=== PATIENT | female | born 1980 | race Caucasian/White ===

== ENCOUNTER 2020-11-14 09:51 | Outpatient (CLI) | payer OTHER, SELFPAY ==
--- NOTE | ~2020-11-14 | MM_ITS ---
EXAMINATION: MM screening landy BI w judy HISTORY: Screening TECHNIQUE: Craniocaudal and mediolateral oblique 3-D tomosynthesis images were obtained and synthetic 2-D images were generated. CAD analysis was submitted and interpreted. COMPARISON: No prior mammogram is available for comparison at this institution. BREAST PARENCHYMAL COMPOSITION: The breasts are heterogeneously dense, which may obscure small masses . FINDINGS: There is no evidence of suspicious mass, calcification, or architectural distortion to sugg est malignancy in either breast. There has been no suspicious interval change. IMPRESSION: 1. No mammographic evidence of malignancy. 2. Recommend routine screening mammography in one year. BI-RADS Category 1: Negative Reviewed, dictated and finalized at location A.
== END 2020-11-14 09:52 | disposition home or self-care (01) ==
PROVIDERS: PCP Family Medicine; Visit Provider Student in an Organized Health Care Education/Training Program
DX: Z12.31 Encounter for screening mammogram for malignant neoplasm of breast (principal)
CPT/HCPCS: 77063; 77067

== ENCOUNTER 2021-02-14 15:32 | Outpatient (CLI) | payer OTHER, SELFPAY ==
--- NOTE | ~2021-02-14 | MR_ITS ---
EXAMINATION: MR lumbar spine wo con EXAM DATE: 02/14/2021 16:12 INDICATION: Lumbar radiculopathy. TECHNIQUE: Multi-sequential, multiplanar MR images of the lumbar spine were obtained without contrast . Sagittal T1, T2, T2 fat saturation images. Axial T2 weighted images. There is no prior study for comparison. FINDINGS: Severe right renal atrophy, probably congenital with some compensatory enlargement of the l eft kidney. There is mild to moderate upper lumbar levoscoliosis. There is 4 mm retrolisthesis L5 on S1 with moderate loss of this disc height. Mild disc disease at the other lumbar levels. The conus me dullaris terminates at the L1 level and has normal signal intensity and morphology. There are no benita picious marrow signal abnormalities. Paraspinal soft tissue is unremarkable. Level by level evaluation: T12-L1: Disc does not extend beyond the endplate margin. Facet arthropathy: None. Neural foraminal stenosis: No stenosis. Central canal stenosis: No stenosis. L1-L2: There is a mild diffuse disc bulge. Facet arthropathy: None. Neural foraminal stenosis: No stenosis. Central canal stenosis: No stenosis. L2-L3: There is a mild diffuse disc bulge. Facet arthropathy: Mild. Neural foraminal stenosis: Mild left. Central canal stenosis: No stenosis. L3-L4: There is a mild diffuse disc bulge. Facet arthropathy: Mild to moderate. Neural foraminal stenosis: Mild left. Central canal stenosis: Mild. L4-L5: There is a mild to moderate diffuse disc bulge. Facet arthropathy: Mild to moderate. Neural foraminal stenosis: Mild to moderate left, mild right. Central canal stenosis: Mild. L5-S1: There is a mild to moderate diffuse disc bulge asymmetric to the left Facet arthropathy: Mild to moderate. Neural foraminal stenosis: Moderate left, mild right. Central canal stenosis: Mild. IMPRESSION: 1. Mild to moderate upper lumbar levoscoliosis. 2. Overall mild to moderate spondylosis. 3. Congenitally small right kidney. Reviewed, dictated and finalized at location A. 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
== END 2021-02-14 15:33 | disposition home or self-care (01) ==
LOC: ANHIMG 15:40
PROVIDERS: PCP Family Medicine; Visit Provider Nurse Practitioner Family
DX: M47.27 Other spondylosis with radiculopathy, lumbosacral region (principal); M48.07 Spinal stenosis, lumbosacral region; N28.1 Cyst of kidney, acquired
CPT/HCPCS: 72148

== ENCOUNTER 2021-02-22 01:25 | Day surgery (SDC) | payer OTHER, SELFPAY ==
[2021-02-06 14:17] VITALS: BMI 35.9
[2021-02-22 08:41] VITALS: BP 129/88; PULSE 55; RESP 18; TEMP 36.1; O2SAT 95; BMI 35.4
[2021-02-22] MEDS: LACTATED RINGERS 1,000 ML 150 ML IV CONT (08:57)
--- NOTE | 2021-02-22 09:04 | WPDANESEPPF ---
Anes - Initial Pre Proc Eval Procedure: Operation Date: 02/22/21 09:30 Proposed Procedures p Esophagogastroduodenoscopy - Adrian Zacarias MD Date/Time: 02/22/21 09:04 Surgeon: Adrain Zacarias MD Pre Op Diagnosis: GERD Patient Data Age: 40 Gender: F Height: 1.63 m Weight: 93.5 kg Last Vital Signs Temp 97.0 F L 02/22/21 08:41 Pulse 55 L 02/22/21 08:41 Resp 18 02/22/21 08:41 BP 129/88 02/22/21 08:41 Pulse Ox 95 02/22/21 08:41 Allergies Allergy/AdvReac Type Severity Reaction Status Date / Time morphine Allergy Unknown Dermatitis Verified 02/22/21 08:40 cefdinir AdvReac Intermediate vaginitis Uncoded 02/06/21 14:14 doxycycline AdvReac Intermediate GI upset Uncoded 02/06/21 14:14 Home Medications Medication Instructions Recorded Confirmed Type fexofenadine 180 mg tablet 180 mg PO DAILY PRN 05/11/19 02/22/21 History lorazepam 0.5 mg tablet 0.5 mg PO BID PRN #60 tablet 05/11/19 02/22/21 Rx albuterol sulfate 90 mcg/actuation 2 puff INHALATION Q4H PRN #18 g 04/02/20 02/22/21 Rx aerosol inhaler metoprolol succinate 100 mg 100 mg PO DAILY #30 tablet 06/04/20 02/22/21 Rx tablet,extended release 24 hr omeprazole 40 mg capsule,delayed 40 mg PO DAILY #90 cap 08/08/20 02/22/21 Rx release escitalopram oxalate 20 mg tablet 20 mg PO DAILY #90 tablet 09/04/20 02/22/21 Rx montelukast 10 mg tablet 10 mg PO DAILY #90 tablet 09/04/20 02/22/21 Rx paroxetine HCl 40 mg PO DAILY 02/06/21 02/22/21 History Patient hx anesthesia problems: none Family hx anesthesia problems: none Results Review: All pre-operative results and documents have been reviewed as part of the pre-operative evaluation. [facility] Past Medical History Medical History (Updated 01/16/21 @ 15:53 by Darcy Hughes NP) Acute non-recurrent maxillary sinusitis BMI 35.0-35.9,adult Chronic thoracic back pain COVID-19 (03/29/20) Diarrhea Exposure to COVID-19 virus Fatigue Low back pain Low back pain with bilateral sciatica Primary hypertension Shortness of breath Vaginal delivery Surgical History Surgical History History of hysterectomy History of tubal ligation Family History Family History Mother Family history of malignant neoplasm of uterus Grandparent Family history of malignant neoplasm of stomach Social History Social History Smoking packs per day: 1 Smoking cigarettes per day: 20.0 Years smoked: 20 Smoking pack-years: 20.00 Smoking status: Former smoker Tobacco type: cigarettes Second hand tobacco smoke exposure: Yes Smoking end date: 04/06/13 Alcohol intake: never Living arrangements: with family Spiritual care concerns: No Anes - Eval Final PreProcedure Day of Procedure 02/22/21 09:04 Patient weight: obese Heart: regular rate and rhythm Lungs: clear to auscultation Airway: Mallampati scale class II Neurological: alert and oriented Last oral intake: >/= 8 hours ASA classification: III Emergent: no Anesthetic plan: proceed Anesthesia type and monitoring: general GIVS and standard monitoring Results Review: All pre-operative results and documents have been reviewed as part of the pre-operative evaluation. Informed Consent: The patient's anesthetic plan and its attendant risks and benefits were discussed with the patient/family/POA. Questions were solicited and answers provided to the satisfaction of the patient/family/POA.
--- NOTE | 2021-02-22 09:19 | WPDGICN ---
Assessment and Plan Assessment and plan (1) GERD (gastroesophageal reflux disease): Qualifiers: Esophagitis presence: esophagitis presence not specified Qualified Code(s): K21.9 - Gastro-esophageal reflux disease without esophagitis Code(s): K21.9 - Gastro-esophageal reflux disease without esophagitis Status: Acute Assessment and Plan: Patient with chronic GE reflux disease. Has nocturnal regurgitation. Follow smelling belching is suspicious for delayed gastric emptying. Plan is for EGD. Anti-reflux measures to in continue. We may want to consider gastric emptying scan pending on EGD results. GI Consult Note Consult date/time: 02/22/21 09:19 HPI: Lydia Harper is a 40 year old female Presents for EGD. Patient complains of a long history of nocturnal regurgitation. Substernal heartburn, indigestion. She has been on Prilosec 40mg p.o. daily taken at bedtime for many years with no change in symptoms. She sometimes will take antacids and other medications to supplement this. She denies any dysphagia. Sometimes she will have belching and foul eructations. Patient denies any weight loss. Family history is noncontributory. Patient presents today for an EGD. Review of Systems Review of Systems: All systems reviewed & are unremarkable except as noted in HPI and below PMFSH Past Medical History Medical History (Updated 01/16/21 @ 15:53 by Darcy Hughes NP) Acute non-recurrent maxillary sinusitis BMI 35.0-35.9,adult Chronic thoracic back pain COVID-19 (03/29/20) Diarrhea Exposure to COVID-19 virus Fatigue Low back pain Low back pain with bilateral sciatica Primary hypertension Shortness of breath Vaginal delivery Surgical History Surgical History History of hysterectomy History of tubal ligation Family History Family History Mother Family history of malignant neoplasm of uterus Grandparent Family history of malignant neoplasm of stomach Social History Social History Smoking packs per day: 1 Smoking cigarettes per day: 20.0 Years smoked: 20 Smoking pack-years: 20.00 Smoking status: Former smoker Tobacco type: cigarettes Second hand tobacco smoke exposure: Yes Smoking end date: 04/06/13 Alcohol intake: never Living arrangements: with family Spiritual care concerns: No Meds Home Medications and Allergies Home Medications Medication Instructions Recorded Confirmed Type fexofenadine 180 mg tablet 180 mg PO DAILY PRN 05/11/19 02/22/21 History lorazepam 0.5 mg tablet 0.5 mg PO BID PRN #60 tablet 05/11/19 02/22/21 Rx albuterol sulfate 90 mcg/actuation 2 puff INHALATION Q4H PRN #18 g 04/02/20 02/22/21 Rx aerosol inhaler metoprolol succinate 100 mg 100 mg PO DAILY #30 tablet 06/04/20 02/22/21 Rx tablet,extended release 24 hr omeprazole 40 mg capsule,delayed 40 mg PO DAILY #90 cap 08/08/20 02/22/21 Rx release escitalopram oxalate 20 mg tablet 20 mg PO DAILY #90 tablet 09/04/20 02/22/21 Rx montelukast 10 mg tablet 10 mg PO DAILY #90 tablet 09/04/20 02/22/21 Rx paroxetine HCl 40 mg PO DAILY 02/06/21 02/22/21 History Allergies Allergy/AdvReac Type Severity Reaction Status Date / Time morphine Allergy Unknown Dermatitis Verified 02/22/21 08:40 cefdinir AdvReac Intermediate vaginitis Uncoded 02/06/21 14:14 doxycycline AdvReac Intermediate GI upset Uncoded 02/06/21 14:14 Vital Signs Vital Signs - 24 hr 02/22/21 08:41 Temperature 97.0 F L Pulse Rate 55 L Respiratory Rate 18 Blood Pressure 129/88 Pulse Oximetry 95 Exam Narrative: Physical exam reveals patient be alert. Vital signs stable. HEENT exam is unremarkable. Patient is anicteric. Lungs are clear to auscultation and percussion. Heart is without murmur or extra sounds. Abdominal exam bowel sound
[2021-02-22] MEDS: BENZOCAINE (*SP) 60 ML SPRAY CAN (HURRICAINE) 1 SPRAY MUCOUS MEM (09:32)
[2021-02-22 09:45] VITALS: BP 98/70; PULSE 68; RESP 17; O2SAT 99
[2021-02-22 09:55] VITALS: BP 106/71; PULSE 65; RESP 18; O2SAT 100
[2021-02-22 10:05] VITALS: BP 127/84; PULSE 62; RESP 20; O2SAT 100
== END 2021-02-22 10:21 | disposition home or self-care (01) ==
PROVIDERS: PCP Family Medicine; Visit Provider Internal Medicine Gastroenterology
PROC: 0DJ08ZZ Inspection of Upper Intestinal Tract, Via Natural or Artificial Opening Endoscopic (ICD-10-PCS; CPT 43235; principal; 2021-02-22 09:30)
DX: K21.9 Gastro-esophageal reflux disease without esophagitis (principal); R14.2 Eructation; Z86.16 Personal history of COVID-19; I10 Essential (primary) hypertension; Z87.891 Personal history of nicotine dependence; Z79.51 Long term (current) use of inhaled steroids; E66.9 Obesity, unspecified; Z68.35 Body mass index [BMI] 35.0-35.9, adult
CPT/HCPCS: 43239; 87081; J2704; J7120

== ENCOUNTER 2021-06-18 07:04 | Outpatient (CLI) | payer OTHER, SELFPAY ==
--- NOTE | ~2021-06-18 | NM_ITS ---
EXAM: NM gastric emptying study DATE: 06/18/2021 11:48 INDICATION: Belching. Nocturnal regurgitation. TECHNIQUE: A gastric emptying study was performed using the methodology of Gretta LARA, et al. J Nucl Med 2007; 48:568-572. The patient was given a meal consisting of 2 scrambled eggs labeled with 0.953 mCi Tc-99m sulfur colloid, 2 slices of toast, two packages of jam, and approximately 120 mL of water . Simultaneous anterior and posterior 1-min images of the abdomen were obtained with the patient supi ne at multiple time points over a total period of 4 hours. The geometric mean of anterior and posteri or views was determined, and the percentage retention was calculated for each time point. COMPARISON: None. FINDINGS: Gastric retention of the radiotracer-labeled meal was 37%, 7%, and 3% at the 1-hour, 2-adam r, and 4-hour time points, respectively. With this technique, apparent rapid gastric emptying is sugg ested by <30% gastric retention at 1 hour. Delayed gastric emptying is defined by gastric retention o f >90% at 1 hour, >60% retention at 2 hours, or >10% retention at 4 hours. IMPRESSION: 1. Normal gastric emptying. Reviewed, dictated and finalized at location A. IMPRESSION: 1. Normal gastric emptying.
== END 2021-06-18 07:05 | disposition home or self-care (01) ==
PROVIDERS: PCP Family Medicine; Visit Provider Internal Medicine Gastroenterology
DX: K21.9 Gastro-esophageal reflux disease without esophagitis (principal)
CPT/HCPCS: 78264; A9541

== ENCOUNTER 2022-10-15 15:11 | Outpatient (CLI) | payer OTHER, SELFPAY ==
--- NOTE | ~2022-10-15 | MM_ITS ---
EXAMINATION: MM screening landy BI w judy HISTORY: Screening mammogram TECHNIQUE: Craniocaudal and mediolateral oblique 3-D tomosynthesis images were obtained and synthetic 2-D images were generated. CAD analysis was submitted and interpreted. COMPARISON: 11/14/2020 bilateral screening mammogram BREAST PARENCHYMAL COMPOSITION: The breasts are heterogeneously dense, which may obscure small masses . FINDINGS: There is no evidence of suspicious mass, calcification, or architectural distortion to sugg est malignancy in either breast. There has been no suspicious interval change. IMPRESSION: 1. No mammographic evidence of malignancy. 2. Recommend routine screening mammography in one year. BI-RADS Category 1: Negative Reviewed, dictated and finalized at location A.
== END 2022-10-15 15:12 | disposition home or self-care (01) ==
LOC: ANHIMG 15:13
PROVIDERS: PCP Nurse Practitioner Family; Visit Provider Obstetrics & Gynecology
DX: Z12.31 Encounter for screening mammogram for malignant neoplasm of breast (principal)
CPT/HCPCS: 77063; 77067

== ENCOUNTER 2023-05-31 15:01 | Emergency (ER) | payer OTHER, SELFPAY ==
--- NOTE | ~2023-05-31 | CT_ITS ---
EXAMINATION: CT abdomen pelvis w con DATE: 05/31/2023 18:13 INDICATION: RLQ pain w/CVA TTP; c/f appy vs pyelo; hx atrophic TECHNIQUE: Computed tomography (CT) of the abdomen and pelvis was performed with 100 mL Omnipaque-350 intravenous contrast. Automated exposure control and iterative reconstruction technique were employe d. The dose-length product was 1039.33 mGy-cm. COMPARISON: None. FINDINGS: Lower thorax: 5 mm peripheral nodule in the lingula. Liver: Enlarged. Biliary/Gallbladder: Gallbladder is normal. No bile duct dilation. Pancreas: No mass or duct dilation. Spleen: Normal. Adrenals:No mass. Kidneys: Severe right renal atrophy. Multiple punctate nonobstructing right calculi. Simple right eve al cyst. Normal left kidney. GI tract: Mild distal esophageal and gastric wall edema. Colonic submucosal fat deposition. No small or large bowel dilation. Normal appendix. Mesentery/Peritoneum: No ascites, mass, or free air. Retroperitoneum: No mass. Atherosclerotic abdominal aortic and/or arterial calcifications. Pelvis: Absent uterus. Normal urinary bladder and ovaries. Soft Tissues: Soft tissues and body wall unremarkable. Bones: No acute osseous finding. IMPRESSION: 5 mm peripheral lingular pulmonary nodule, most likely representing a benign granuloma. No routine fo llow-up recommended unless the patient is at high risk, in which case consider an optional low-dose n oncontrast CT of the chest in 12 months. Mild esophagitis/gastritis. Hepatomegaly. Severe right renal atrophy. No CT evidence of obstructive uropathy or pyelonephritis. Normal appendix. Colonic submucosal fat as can be seen with chronic IBD, obesity, chemotherapy treatment, and celiac d isease. Reviewed, dictated and finalized at location K. 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 No routine follow-up recommended unless the patient is at high risk, i n which case consider an optional low-dose noncontrast CT of the chest in 12 mo nths. Mild esophagitis/gastritis. Hepatomegaly. Severe right renal atrophy. No CT evidence of obstructive uropathy or pyeloneph ritis. Normal appendix. Colonic submucosal fat as can be seen with chronic IBD, obesity, chemotherapy t reatment, and celiac disease.
[2023-05-31 15:11] VITALS: BP 152/108; PULSE 78; RESP 16; TEMP 36.5; O2SAT 99
--- NOTE | 2023-05-31 16:48 | ED.ABDPAIN ---
HPI - Abdominal Pain General Chief Complaint: Abdominal Pain Stated Complaint: abd pain Time Seen by Provider: 05/31/23 16:37 Source: patient and family () Mode of arrival: ambulatory Limitations: no limitations History of Present Illness HPI narrative: 42-year-old postmenopausal female presents with abdominal pain. She notes that she has had chronic loose stools but denies any melena or hematochezia. Her pain is located at the umbilicus but is otherwise a generalized pain which she describes as a dull ache. It radiates to her low back. This has been occurring past 24 hours and is constant. She was that she has 1 functioning kidney and the other is atrophic. She knows that she has GI issues previously and follows with executive communications manager Dr. Zacarias. She had an acid test performed as well as an EGD but no prior colonoscopy. Last oral intake was approximally 9:00 a.m. but has otherwise been limited as she has had no appetite. She denies any nausea or vomiting. No pain with bowel movements. Denies any vaginal discharge or bleeding. Denies any hematuria, dysuria, urinary urgency, or frequency. She does have an occasional bladder leak that is chronic. Amenorrhea in the setting of hysterectomy. No prior cholecystectomy or appendectomy. Related Data Home Medications Medication Instructions Recorded Confirmed fexofenadine 180 mg tablet 180 mg PO DAILY PRN allergies 05/11/19 12/10/22 (Adrianne Allergy) Allergies Allergy/AdvReac Type Severity Reaction Status Date / Time morphine Allergy Unknown Dermatitis Verified 12/09/22 13:20 cefdinir AdvReac Intermediate vaginitis Uncoded 12/09/22 13:20 doxycycline AdvReac Intermediate GI upset Uncoded 12/09/22 13:20 [facility] Past Medical History Medical History (Updated 06/01/23 @ 00:00 by Sujata Anne) Acute non-recurrent maxillary sinusitis Acute sinusitis BMI 35.0-35.9,adult BMI 36.0-36.9,adult Bronchitis Chronic thoracic back pain COVID-19 (03/29/20) Diarrhea Exposure to COVID-19 virus Fatigue Grinding of teeth Hypertension Low back pain Low back pain with bilateral sciatica Mixed incontinence Overactive bladder Pain, joint, multiple sites Primary hypertension Shortness of breath Sinusitis Urinary incontinence Urinary symptom or sign Vaginal delivery Surgical History Surgical History History of esophagogastroduodenoscopy (EGD) History of hysterectomy 2005 History of tubal ligation Family History Family History Mother Family history of malignant neoplasm of uterus Grandparent Family history of malignant neoplasm of stomach Social History Social History (Updated 12/09/22 @ 13:23 by Alma Chen MA) Smoking packs per day: 1 Smoking cigarettes per day: 20.0 Years smoked: 20 Smoking pack-years: 20.00 Smoking status: Former smoker Tobacco type: cigarettes Second hand tobacco smoke exposure: Yes Smoking end date: 04/06/13 Alcohol intake: never Substance use: never Substance use type: does not use Lack of Transportation: No Lack of Food: Never True Current Housing: I Have Housing Concerned About Future Housing: No Difficulty Paying Gas/Electric Bills: No Difficulty Paying for Meds: No Currently Unemployed: No Education: Trade/Vocational Certificate Difficulty w/ Childcare or Family Care: No Living arrangements: with family Occupation/Education: occupation Gender identity (if verbalized by the patient): Female Sexual Orientation (if Verbalized by the Patient): Straight or Heterosexual Spiritual care concerns: No Exam Narrative: GENERAL: Well-appearing, well-nourished, and in no acute distress. HEAD: Normocephalic, atraumatic. EYES: Non injected, non icteric ENT: Nares clear, no rhinorrhea or epistaxis. NECK: Supple. CHEST: Speaking in complete sentences. No r
[2023-05-31 17:02] LABS: Appearance Urine Clear (Clear); Basophils Absolute Auto 0.1 K/mm3 (0.0-0.1); Basophils Percent Auto 0.9 % (0.2-1.2); Bilirubin Urine Negative (Negative); Blood Urine Negative (Negative); Color Urine Yellow (Yellow); Eosinophils Absolute Auto 0.3 K/mm3 (0-0.3); Eosinophils Percent Auto 3.4 % (0-4.4); Glucose Urine UA Negative (Negative); Hematocrit 42.1 % (37.0-47.0); Immature Granulocyte Absolute 0.02 K/mm3 (0.00-0.031); Immature Granulocyte Percent A 0.2 % (0-0.5); Ketones Urine Negative (Negative); Leukocyte Esterase Ur Negative LEU/UL (Negative); Lymphocytes Percent Auto 29.5 % (18.3-44.2); Mean Corpuscular HGB Conc 33.3 g/dl (32-36); Mean Corpuscular Hemoglobin 30.2 pg (26-34); Mean Corpuscular Volume 90.7 fl (80-100); Mean Platelet Volume 11.1 fl (7.4-10.4); Monocytes Absolute Auto 0.4 K/mm3 (0.1-0.6); Monocytes Percent Auto 4.4 % (2.6-8.5); Neutrophils Percent Auto 61.6 % (45.5-73.1); Nitrate Urine Negative (Negative); Platelet Count Result 303 k/mm3 (150-375); Protein Urine Negative (Negative); Red Blood Count 4.64 M/mm3 (4.2-5.4); Red Cell Distribution Width 12.4 % (11.5-14.5); Specific Grav Ur 1.005 (1.001-1.035); Urobilinogen Urine 0.2 mg/dL (<2.0); White Blood Count 8.1 K/mm3 (4.5-10.0); pH Urine 6.5 (5.0-9.0)
[2023-05-31 17:06] LABS: Add Urine Microscopic? NO
[2023-05-31] MEDS: ACETAMINOPHEN 500 MG TABLET 1000 MG PO (17:36)
[2023-05-31 17:41] LABS: Alanine Aminotransferase 22 U/L (6-35); Albumin Level 4.2 g/dL (3.5-5.1); Alkaline Phosphatase 65 U/L (38-126); Anion Gap 6 mmol/L (8-16); Aspartate Amino Transferase 34 U/L (14-36); Bilirubin,Total 0.6 mg/dL (0.2-1.3); Blood Urea Nitrogen 5 mg/dL (7-17); Calcium 8.8 mg/dL (8.4-10.2); Carbon Dioxide 27 mmol/L (22-30); Chloride 104 mmol/L (98-107); Estimated CRCL calculation 103 ml/min; Estimated Glomerular Filt Rate > 60; Glucose 86 mg/dL (65-110); Lipase 34 U/L (23-300); Sodium 137 mmol/L (137-145)
[2023-05-31] MEDS: DICYCLOMINE HCL INJ 20 MG/2 ML VIAL IM (18:59)
[2023-05-31 19:04] VITALS: BP 151/106; PULSE 60; RESP 20; TEMP 36.6; O2SAT 99
== END 2023-05-31 19:11 | disposition home or self-care (01) ==
PROVIDERS: Physician Assistant; Emergency Provider Student in an Organized Health Care Education/Training Program; PCP Nurse Practitioner Family
DX: R10.33 Periumbilical pain (principal); I10 Essential (primary) hypertension; N39.46 Mixed incontinence; N32.81 Overactive bladder; Z86.16 Personal history of COVID-19; Z87.891 Personal history of nicotine dependence; Z90.710 Acquired absence of both cervix and uterus; R91.1 Solitary pulmonary nodule; K20.90 Esophagitis, unspecified without bleeding; K29.70 Gastritis, unspecified, without bleeding; R16.0 Hepatomegaly, not elsewhere classified; N26.1 Atrophy of kidney (terminal); R93.3 Abnormal findings on diagnostic imaging of other parts of digestive tract
CPT/HCPCS: 36415; 74177; 80053; 81003; 81025; 83690; 85025; 96372; 99284; A9270; J0500; Q9967

== ENCOUNTER 2023-07-01 09:50 | Outpatient (CLI) | payer OTHER, SELFPAY ==
--- NOTE | ~2023-07-01 | US_ITS ---
US abdomen limited INDICATION: Right upper quadrant pain for 1-2 years PROCEDURE: Realtime right upper abdominal ultrasound. COMPARISON: No prior studies for comparison. FINDINGS: The pancreas is normal without focal mass or pancreatic ductal dilation. Liver echotexture is normal without focal mass or intrahepatic biliary dilatation. There is normal directional flow i n the portal vein. The gallbladder is normal without stones, gallbladder wall thickening or pericholecystic fluid. Comm on bile duct measures 6 mm. No sonographic Velasco's sign. IMPRESSION: 1: Normal limited abdominal ultrasound. Reviewed, dictated and finalized at location B.
[2023-07-01 10:16] LABS: Hematocrit 42.8 % (37.0-47.0); Hemoglobin 14.1 g/dL (12.0-15.0); Mean Corpuscular HGB Conc 32.9 g/dl (32-36); Mean Corpuscular Hemoglobin 30.5 pg (26-34); Mean Corpuscular Volume 92.4 fl (80-100); Mean Platelet Volume 11.1 fl (7.4-10.4); Platelet Count Result 308 k/mm3 (150-375); Red Blood Count 4.63 M/mm3 (4.2-5.4); Red Cell Distribution Width 12.2 % (11.5-14.5); White Blood Count 7.9 K/mm3 (4.5-10.0)
[2023-07-01 10:24] LABS: Cholesterol 231 mg/dL (0-200); HDL Direct 36 mg/dL; Triglycerides 261 mg/dL (<150)
[2023-07-01 10:34] LABS: Alanine Aminotransferase 17 U/L (6-35); Alkaline Phosphatase 71 U/L (38-126); Anion Gap 3 mmol/L (4-12); Aspartate Amino Transferase 22 U/L (14-36); Bilirubin,Total 0.4 mg/dL (0.2-1.3); Blood Urea Nitrogen 6 mg/dL (7-17); CRP < 0.5 mg/dL (<1.0); Carbon Dioxide 27 mmol/L (22-30); Chloride 107 mmol/L (98-107); Estimated Glomerular Filt Rate > 60; Glucose 90 mg/dL (65-110); Potassium 4.1 mmol/L (3.4-5.0); Sodium 137 mmol/L (137-145)
[2023-07-01 10:35] LABS: LDL Cholesterol Direct 147 mg/dL
[2023-07-01 11:10] LABS: Hepatitis B Surface Antigen Negative (Negative)
[2023-07-01 11:16] LABS: HAV RESULT Negative (Negative); Hepatitis B Core IgM Result Negative (Negative)
[2023-07-01 11:28] LABS: Hepatitis C Virus Antibody Negative (Negative)
[2023-07-01 12:14] LABS: Erythrocyte Sedimentation Rate 18 mm/hr (0-20)
[2023-07-04 11:03] LABS: Immunoglobulin A 104 mg/dL (47-310); TTG IGA AB <1.0 U/mL (<15.0)
== END 2023-07-01 09:51 | disposition home or self-care (01) ==
PROVIDERS: Family Medicine; PCP Nurse Practitioner Family; Referring Provider Nurse Practitioner Family; Visit Provider Nurse Practitioner
DX: R93.89 Abnormal findings on diagnostic imaging of other specified body structures (principal); K21.9 Gastro-esophageal reflux disease without esophagitis; K58.2 Mixed irritable bowel syndrome; R16.0 Hepatomegaly, not elsewhere classified; E78.2 Mixed hyperlipidemia
CPT/HCPCS: 36415; 76705; 80053; 80061; 80074; 82784; 84443; 85027; 85652; 86140; 86364

== ENCOUNTER 2023-07-14 07:00 | Outpatient (NON) | payer OTHER, SELFPAY | END 2023-07-14 07:01 | disposition home or self-care (01) | PROVIDERS: PCP Nurse Practitioner Family; Visit Provider Internal Medicine Gastroenterology | DX: K92.89 Other specified diseases of the digestive system (principal) | CPT/HCPCS: 88305 ==

== ENCOUNTER 2023-07-14 08:00 | Day surgery (SDC) | payer OTHER, SELFPAY ==
[2023-06-22 08:06] VITALS: BMI 39.0
--- NOTE | 2023-07-13 13:02 | PM.HPGS ---
History of Present Illness History of Present Illness Consent: Risks, benefits, and alternatives have been discussed and questions answered. Patient agrees to proceed with procedure. Chief complaint: Other specified diseases of digestive system, Narrative: Lydia Harper is a 42 year old female Who was seen at [facility] ER 05/31/2023 for abdominal pain-this abdominal pain is chronic for several years.? She had CT of the abdomen and pelvis that revealed revealed mild esophagitis/gastritis and colonic submucosal fat which could be seen with chronic IBD.? CBC, CMP, lipase and urine were normal.? She was discharged on dicyclomine 10 mg twice per day and does feel like it helps somewhat.? She has constant abdominal pain while eating more notable in RUQ into right flank and feels like she has to stand to eat.? She reports early satiety with nausea but no vomiting. She also states that immediately after eating feels like her whole abdomen gets tight. Previous EGD 3 years ago was unremarkable as was a gastric emptying scan. Review of Systems Review of Systems: All systems reviewed & are unremarkable except as noted in HPI and below PMFSH Past Medical History Medical History Abnormal findings on imaging test Acute non-recurrent maxillary sinusitis Acute sinusitis BMI 35.0-35.9,adult BMI 36.0-36.9,adult Bronchitis Chronic thoracic back pain COVID-19 (03/29/20) Diarrhea Exposure to COVID-19 virus Fatigue Gas bloat syndrome Grinding of teeth Hepatomegaly Hypertension Irritable bowel syndrome with alternating bowel habits Low back pain Low back pain with bilateral sciatica Mixed incontinence Obesity Overactive bladder Pain, joint, multiple sites Primary hypertension Right upper quadrant abdominal tenderness Shortness of breath Sinusitis Urinary incontinence Urinary symptom or sign Vaginal delivery Surgical History Surgical History History of esophagogastroduodenoscopy (EGD) History of hysterectomy 2005 History of tubal ligation Family History Family History Mother Family history of malignant neoplasm of uterus Grandparent Family history of malignant neoplasm of stomach Social History Social History Smoking packs per day: 1 Smoking cigarettes per day: 20.0 Years smoked: 20 Smoking pack-years: 20.00 Smoking status: Never smoker Tobacco type: cigarettes Second hand tobacco smoke exposure: Yes Smoking end date: 04/06/13 Alcohol intake: never Substance use: current Substance use type: marijuana Other substance usage details: daily Lack of Transportation: No Lack of Food: Never True Current Housing: I Have Housing Concerned About Future Housing: No Difficulty Paying Gas/Electric Bills: No Difficulty Paying for Meds: No Currently Unemployed: No Education: Trade/Vocational Certificate Difficulty w/ Childcare or Family Care: No Living arrangements: with family Occupation/Education: occupation Gender identity (if verbalized by the patient): Female Sexual Orientation (if Verbalized by the Patient): Straight or Heterosexual Spiritual care concerns: No Meds Home Medications and Allergies Home Medications Medication Instructions Recorded Confirmed Type fexofenadine 180 mg tablet 180 mg PO DAILY PRN allergies 05/11/19 07/14/23 History (Adrianne Allergy) calcium polycarbophil 625 mg 1,250 mg PO BID #120 tabs 08/14/21 07/14/23 Rx tablet ([employer]) oxybutynin chloride 5 mg 5 mg PO DAILY #30 tabs 11/19/21 07/14/23 Rx tablet,extended release 24 hr albuterol sulfate 90 mcg/actuation 1 - 2 inh inhalation Q4-6H PRN 08/11/22 07/14/23 Rx aerosol inhaler shortness of breath or wheezing #8.5 grams duloxetine 30 mg capsule,delayed 30
--- NOTE | 2023-07-14 08:12 | WPDANESEPPF ---
Anes - Initial Pre Proc Eval Procedure: Operation Date: 07/14/23 10:30 Proposed Procedures p Esophagogastroduodenoscopy - Mahesh Macdonald MD s Diagnostic Colonoscopy - Mahesh Macdonald MD Date/Time: 07/14/23 08:12 Surgeon: Mahesh Macdonald MD Pre Op Diagnosis: Other specified diseases of digestive system, Patient Data Age: 42 Gender: F Height: 1.63 m Weight: 103.238 kg Allergies Allergy/AdvReac Type Severity Reaction Status Date / Time morphine Allergy Unknown Dermatitis Verified 07/14/23 09:18 cefdinir AdvReac Intermediate vaginitis Uncoded 07/14/23 09:18 doxycycline AdvReac Intermediate GI upset Uncoded 07/14/23 09:18 Home Medications Medication Instructions Recorded Confirmed Type fexofenadine 180 mg tablet 180 mg PO DAILY PRN allergies 05/11/19 07/14/23 History (Adrianne Allergy) calcium polycarbophil 625 mg 1,250 mg PO BID #120 tabs 08/14/21 07/14/23 Rx tablet (F[employer]Con) oxybutynin chloride 5 mg 5 mg PO DAILY #30 tabs 11/19/21 07/14/23 Rx tablet,extended release 24 hr albuterol sulfate 90 mcg/actuation 1 - 2 inh inhalation Q4-6H PRN 08/11/22 07/14/23 Rx aerosol inhaler shortness of breath or wheezing #8.5 grams duloxetine 30 mg capsule,delayed 30 mg PO BID #60 caps 12/09/22 07/14/23 Rx release cyclobenzaprine 10 mg tablet 10 mg PO TID PRN muscle spasm #90 12/10/22 07/14/23 Rx tabs lorazepam 0.5 mg tablet 0.5 mg PO BID PRN anxiety #60 tabs 12/10/22 07/14/23 Rx estradiol 2 mg tablet 2 mg PO DAILY #90 tabs 02/10/23 07/14/23 Rx acetaminophen 500 mg capsule 1,000 mg PO Q6H PRN pain #30 caps 05/31/23 07/14/23 Rx ibuprofen 600 mg tablet 600 mg PO TID PRN pain #30 tabs 05/31/23 07/14/23 Rx losartan 25 mg tablet 25 mg PO DAILY #30 tabs 06/01/23 07/14/23 Rx montelukast 10 mg tablet 10 mg PO DAILY #90 tabs 06/09/23 07/14/23 Rx omeprazole 40 mg capsule,delayed 40 mg PO BID #60 caps 06/16/23 07/14/23 Rx release dicyclomine 10 mg capsule See Rx Instructions .Route 06/17/23 07/14/23 Rx .COMPLEX #360 caps sucralfate 1 gram tablet See Rx Instructions .Route 06/17/23 07/14/23 Rx .COMPLEX #360 tabs metoprolol succinate 100 mg 100 mg PO DAILY #30 tabs 06/30/23 07/14/23 Rx tablet,extended release 24 hr Patient hx anesthesia problems: none Family hx anesthesia problems: none Results Review: All pre-operative results and documents have been reviewed as part of the pre-operative evaluation. [facility] Past Medical History Medical History Abnormal findings on imaging test Acute non-recurrent maxillary sinusitis Acute sinusitis BMI 35.0-35.9,adult BMI 36.0-36.9,adult Bronchitis Chronic thoracic back pain COVID-19 (03/29/20) Diarrhea Exposure to COVID-19 virus Fatigue Gas bloat syndrome Grinding of teeth Hepatomegaly Hypertension Irritable bowel syndrome with alternating bowel habits Low back pain Low back pain with bilateral sciatica Mixed incontinence Obesity Overactive bladder Pain, joint, multiple sites Primary hypertension Right upper quadrant abdominal tenderness Shortness of breath Sinusitis Urinary incontinence Urinary symptom or sign Vaginal delivery Surgical History Surgical History History of esophagogastroduodenoscopy (EGD) History of hysterectomy 2005 History of tubal ligation Family History Family History Mother Family history of malignant neoplasm of uterus Grandparent Family history of malignant neoplasm of stomach Social History Social History (Updated 07/14/23 @ 10:33 by Smith Rodgers DO) Smoking packs per day: 1 Smoking cigarettes per day: 20.0 Years smoked: 20 Smoking pack-years: 20.00 Smoking status: Never smoker Tobacco type: cigarettes Second hand tobacco smoke exposure: Yes Smoking end date: 04/06/13 Alcohol intake: never Substance use: cu
[2023-07-14 09:25] VITALS: BMI 37.0
[2023-07-14 09:26] VITALS: BP 132/98; PULSE 84; RESP 20; TEMP 36.8; O2SAT 99
[2023-07-14] MEDS: LACTATED RINGERS 1,000 ML 150 ML IV CONT (09:39)
[2023-07-14 11:34] VITALS: BP 127/104; PULSE 102; RESP 16; O2SAT 98
[2023-07-14 11:44] VITALS: BP 111/84; PULSE 85; RESP 18; O2SAT 100
[2023-07-14 11:54] VITALS: BP 134/88; PULSE 88; RESP 18; O2SAT 100
--- NOTE | 2023-07-14 12:38 | WPDANESPN ---
Anes - Prog Note Post-Op Date/Time: 07/14/23 12:38 Cardiovascular status: normal Respiratory status: normal Airway patency: baseline Mental status: baseline Post-Op hydration status: normal Vital Signs: Last Vital Signs Temp 36.8 C 07/14/23 09:26 Pulse 88 07/14/23 11:54 Resp 18 07/14/23 11:54 BP 134/88 07/14/23 11:54 Pulse Ox 100 07/14/23 11:54 O2 Del Method Room Air 07/14/23 11:54 Pain Score (VAS): 0 I/O: Intake & Output 07/13/23 07/14/23 07/14/23 23:59 07:59 15:59 Intake Total 500 Balance 500 Post-procedural complaints: none Patient Feedback: Patient satisfied with anesthetic care. Other Findings: Patient vital signs back to baseline. Patient denies nausea and vomiting. Patient's pain under control. Patient OK for discharge.
== END 2023-07-14 12:11 | disposition home or self-care (01) ==
PROVIDERS: PCP Nurse Practitioner Family; Visit Provider Internal Medicine Gastroenterology
PROC: 0DJ08ZZ Inspection of Upper Intestinal Tract, Via Natural or Artificial Opening Endoscopic (ICD-10-PCS; CPT 43235; principal; 2023-07-14 10:30)
PROC: 0DJD8ZZ Inspection of Lower Intestinal Tract, Via Natural or Artificial Opening Endoscopic (ICD-10-PCS; CPT 45378; 2023-07-14 10:30)
DX: R93.3 Abnormal findings on diagnostic imaging of other parts of digestive tract (principal); K64.8 Other hemorrhoids; K21.00 Gastro-esophageal reflux disease with esophagitis, without bleeding; R10.13 Epigastric pain; K21.9 Gastro-esophageal reflux disease without esophagitis
CPT/HCPCS: 45378; 43239

== ENCOUNTER 2023-07-29 07:53 | Outpatient (CLI) | payer OTHER, SELFPAY ==
--- NOTE | ~2023-07-29 | NM_ITS ---
EXAMINATION: NM hepatobiliary w pharm DATE: 07/29/2023 12:16 CDT INDICATION: Right upper quadrant pain, nausea COMPARISON: Ultrasound dated 07/01/2023. TECHNIQUE: 4.9 mCi Tc-99m mebrofenin (Choletec) was administered intravenously. Scintigraphic images of the abdomen were obtained for one hour. At the 1 hour time point, [2 mcg sincalide (Kinevac) was administered by slow intravenous infusion, and imaging was continued for 30 minutes. Gallbladder ejec tion fraction was calculated by the technologist.] FINDINGS: There is normal clearance of radiotracer from the blood pool. There is homogeneous tracer u ptake by the liver. Activity progresses to the gallbladder and bowel. The gallbladder ejection fract ion (GBEF) is 75% (normal 10-90%, but most patient with gallbladder dysfunction have GBEF < 35%).] IMPRESSION: 1. Normal hepatobiliary scan. Reviewed, dictated and finalized at location B.
== END 2023-07-29 07:54 | disposition home or self-care (01) ==
PROVIDERS: PCP Nurse Practitioner Family; Visit Provider Nurse Practitioner
DX: K92.89 Other specified diseases of the digestive system (principal); R10.811 Right upper quadrant abdominal tenderness; R93.89 Abnormal findings on diagnostic imaging of other specified body structures
CPT/HCPCS: 78227; A9537; J2805

== ENCOUNTER 2024-09-29 12:29 | Emergency (ER) | payer OTHER, SELFPAY ==
--- NOTE | ~2024-09-29 | XR_ITS ---
EXAM/ PROCEDURE: XR wrist LT min 3V - 09/29/2024 12:49 CDT HISTORY: 43 years old Female with Fall COMPARISON: None available TECHNIQUE: Four view(s) FINDINGS/ IMPRESSION: Nondisplaced fracture of the left distal radius. Joint spaces are within normal limits. Surrounding soft tissue injury. Reviewed, dictated and finalized at location A.
[2024-09-29 12:32] VITALS: BP 176/112; PULSE 62; RESP 18; TEMP 36.4; O2SAT 100
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
[2024-09-29] MEDS: NAPROXEN 500 MG TABLET PO (13:57)
== END 2024-09-29 14:05 | disposition home or self-care (01) ==
PROVIDERS: Emergency Provider Nurse Practitioner Family; PCP Nurse Practitioner Family
DX: S52.502A Unspecified fracture of the lower end of left radius, initial encounter for closed fracture (principal); I10 Essential (primary) hypertension; E66.9 Obesity, unspecified; N39.46 Mixed incontinence; N32.81 Overactive bladder; Z68.36 Body mass index [BMI] 36.0-36.9, adult; K58.2 Mixed irritable bowel syndrome; Z86.16 Personal history of COVID-19; Z87.891 Personal history of nicotine dependence; Z90.710 Acquired absence of both cervix and uterus; W18.39XA Other fall on same level, initial encounter
CPT/HCPCS: 29125; 73110; 99284; A4565; A9270

== ENCOUNTER 2024-10-10 12:59 | Outpatient (CLI) | payer OTHER, SELFPAY ==
--- OUTSIDE RECORDS SUMMARY | 2024-10-10 13:07 | XMS_ITS | Clinical Summary ---
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
--- OUTSIDE RECORDS SUMMARY | 2024-10-10 13:07 | XMS_ITS | Clinical Summary ---
Author Organization [facility] Address [address] [facility] [facility] [place] [address] Care Team Providers Care Data Analyst Name Role Phone Rey Bateman MD Primary Care Provider [phone] Source Comments [facility],non-owned Affiliates and Associated Physician Practices is amultiple site organization consisting of ambulatory clinics and hospital sitesin [place], [place], [place] and [place]. This disclosure is being madepursuant to the Care Everywhere program and may not contain all information available regarding this patient. Last updated 17.[facility] Allergies Active Allergy Reactions Criticality Noted Date Comments Amoxicillin 12/20/2015 Morphine Swelling 06/04/2017 Medications * Be aware that medications may not be up to date on this document. Alwaysverify current medications with the patient. Fluticasone Propionate (FLONASE NA) Active Sertraline HCl (ZOLOFT PO) Active Active Problems Problem Noted Date Diagnosed Date Nasal inflammation 12/20/2015 Social History Tobacco Use Types Packs/Day Years Used Date Smoking Tobacco: Former Cigarettes Q uit: 2013 Smokeless Tobacco: Never Alcohol Use Standard Drinks/Week Comments Not Asked 0 (1 standard drink = 0.6 oz pur e alcohol) Comments No Sex and Gender Information Value Date Recorded Sex Assigned at Not on file Legal Sex Female 9:54 AM CDT Gender Identity Not on file Sexual Orientation Not on file Last Filed Vital Signs Vital Sign Reading Time Taken Comments Blood Pressure 120/86 06/04/2017 4:45 PM 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 FUNCTION DENTAL ASSISTANT Pulse 80 06/04/2017 4:45 PM EXPANDED FUNCTION DENTAL ASSISTANT Temperature 36.7 C (98.1 F) 06/04/2017 4:45 PM EXPANDED FUNCTION DENTAL ASSISTANT Respiratory Rate 16 06/04/2017 4:45 PM EXPANDED FUNCTION DENTAL ASSISTANT Oxygen Saturation 97% 06/04/2017 4:45 PM EXPANDED FUNCTION DENTAL ASSISTANT Inhaled Oxygen Concentration - - Weight 97.5 kg (215 lb) 06/04/2017 4:45 PM EXPANDED FUNCTION DENTAL ASSISTANT Height 167.6 cm (5' 6) 06/04/2017 4:45 PM EXPANDED FUNCTION DENTAL ASSISTANT Body Mass Index 34.7 06/04/2017 4:45 PM EXPANDED FUNCTION DENTAL ASSISTANT Plan of Treatment Health Maintenance Due Date Last Done Comments LIPID TESTING 1979 MAMMOGRAM 1979 HIV SCREENING 11/17/1994 HEPATITIS C SCREENING 11/13/1997 DTAP/TDAP/TD VACCINES (1 - Tdap) 11/17/1998 HEPATITIS B VACCINE (1 of 3 - 19+ 3-dose series) 11/17/1998 PAP SMEAR 11/17/2000 COVID-19 VACCINE (1 - 2023-2 5 season) 2023 DEPRESSION SCREENING 04/06/2024 INFLUENZA VACCINE (Season Ended) 2024 ZOSTER VACCINE (1 of 2) 11/17/2029 HIB VACCINE Aged Out No longer eligi ble based on patient's age to complete this topic HPV VACCINE Aged Out No longer eligi ble based on patient's age to complete this topic MENINGOCOCCAL (Group B) VACC INE SHARED DECISION-MAKING Aged Out No longer eligibl e based on patient's age to complete this topic MENINGOCOCCAL GROUPS A/C/Y/W VACCINE Aged Out No longer eligible b ased on patient's age to complete this topic PNEUMOCOCCAL VACCINE Aged Out No long er eligible based on patient's age to complete this topic Insurance [employer] [facility] SELF PAY NO INSURANCE Member Subscriber Plan / Payer (Ef fective for All Dates) Name:Lydia Ramos B Member ID:Not on file Relation to Subscriber:Not on file Name:WILTONGRETELLYDIA Zaldivar Subscriber ID:Not on file Address: [facility] [place] [address] Payer ID:Not on file Group ID:Not on file Type:Self Pay Address: [place], [place] * Guarantor: RICHARDLYDIA Account Type Relation to Patient Date of Phone Billing Address Personal/Family Spouse [address] [facility] SELF PAY NO INSURANCE Member Subscriber Plan / Payer (Ef fective for All Dates) Name:Lydia Ramos B Member ID:Not on file Relation to Subscriber:Not on file Name:RICHARDLYDIA Subscriber ID:Not on file Address: [address] [place] [address] Payer ID:Not on file Group ID:Not on file Type:Self Pay Address: [place], [place] [facility] SELF PAY NO INSURANCE Member Subscriber Plan / Payer (Ef fective for All Dates) Name:Lydia Ramos Member ID:Not on file Relation to Subscriber:Not on file Name:LYDIA RAMOS Subscriber ID:Not on file Address: [address] [place] [address] Payer ID:Not on file Group ID:Not on file Type:Self Pay Address: [place], [place] Care Teams Data Analyst Relationship Specialty Start Date End Date Rey Bateman MD [facility] [place] [id number] PCP - General Family Medicine 12/20/15
--- NOTE | 2024-10-10 13:24 | ECG_ITS ---
Test Date: 2024-10-10 13:28:50 Measurements Intervals [place] Rate: 62 P: 1 SD: 132 QRS: -14 QRSD: 103 T: -5 QT: 395 QTc: 402 Interpretive Statements SINUS RHYTHM INCOMPLETE RIGHT BUNDLE BRANCH BLOCK [90+ ms QRS DURATION, TERMINAL R IN V1/V2, 40+ ms S IN I/aVL/V4/V5/V6] No previous ECG available for comparison Electronically Signed On 10-10-2024 22:14:06 CDT by Werner Rosas M.D.
[2024-10-10 13:35] LABS: Anion Gap 7 mmol/L (4-12); Blood Urea Nitrogen 9 mg/dL (7-17); Calcium 9.2 mg/dL (8.4-10.2); Carbon Dioxide 24 mmol/L (22-30); Chloride 105 mmol/L (98-107); Estimated Glomerular Filt Rate > 60; Glucose 89 mg/dL (65-110); Potassium 4.2 mmol/L (3.4-5.0); Sodium 136 mmol/L (137-145)
== END 2024-10-10 13:00 | disposition home or self-care (01) ==
LOC: ANHLAB 13:01
PROVIDERS: PCP Nurse Practitioner Family; Visit Provider Nurse Anesthetist, Certified Registered
DX: Z01.818 Encounter for other preprocedural examination (principal); I45.10 Unspecified right bundle-branch block
CPT/HCPCS: 36415; 80048; 93005